=== PATIENT | male | born 1955 | race Hispanic/Latino ===

== ENCOUNTER 2019-05-20 02:11 | Emergency (ER) | payer SELFPAY ==
--- OUTSIDE RECORDS SUMMARY | 2019-05-20 02:13 | XMS REPORT ---
:1955 [facility] Address [address] [place] [address] Dr. Díaz [address] [place] [address] Care Team Providers Name Role Phone Unavailable Unavailable Unavailable Problems This patient has no known problems. Allergies, Adverse Reactions, Alerts This patient has no known allergies or adverse reactions. Medications This patient has no known medications.
--- OUTSIDE RECORDS SUMMARY | 2019-05-20 02:13 | XMS REPORT | Summary of Care ---
:1955 Author Organization [facility] - Health Address [address] [place] [address] Care Team Providers Name Role Phone René Stone [facility] Primary Care Provider [phone] Encounter Details Date Type Department Care Team Description 12/18/2018 Orders Only [facility] Doctor Unassigned, No [address] [facility] [place] [address] [address] [place] [address] Allergies No Known Allergiesdocumented as of this encounter (statuses as of 12/18/2018) Medications Medication Sig Dispensed Refills Start Date End Date Status atorvastatin 80 mg tablet Take 80 mg by 0 Active mouth at bedtime. metoprolol tartrate 100 Take 50 mg by 0 Active mg tablet mouth 2 (two) times daily. spironolactone Take 25 mg by 0 Active (ALDACTONE) 25 mg tablet mouth daily. aspirin 81 mg chewable Take 81 mg by 0 Active tablet mouth daily. clopidogrel 75 mg tablet Take 75 mg by 0 Active mouth daily. documented as of this encounter (statuses as of 12/18/2018) Active Problems Not on filedocumented as of this encounter (statuses as of 12/18/2018) Social History Tobacco Use Types Packs/Day Years Used Date Former Smoker Cigarettes Smokeless Tobacco: Former User Sex Assigned at Date Recorded Not on file Job Start Date Occupation Industry Not on file Not on file Not on file Travel History Travel Start Travel End No recent travel history available. documented as of this encounter Last Filed Vital Signs Not on filedocumented in this encounter Plan of Treatment Health Maintenance Due Date Last Done Comments HEPATITIS C (HCV) SCREEN 1955 DTaP,Tdap,and Td Vaccines (1 - 1974 Tdap) COLONOSCOPY 2005 Zoster Recombinant Vaccine 2005 (SHINGRIX) (1 of 2) LUNG CANCER SCREEN: Recommended 2010 for age 55-80 with 30 + pack year history INFLUENZA VACCINE (#1) 2018 PNEUMOCOCCAL 0-64 YEARS COMBINED Aged Out No longer eligible based on SERIES patient's age to complete this topic documented as of this encounter Procedures Procedure Name Priority Date/Time Associated Diagnosis Comments RADIOLOGY DOCUMENTATION Routine 12/18/2018 12:01 AM CDT documented in this encounter Results Not on filedocumented in this encounter
--- OUTSIDE RECORDS SUMMARY | 2019-05-20 02:14 | XMS REPORT | Summary of Care ---
:1955 Author Organization [facility] Address [address] [place] [address] Care Team Providers Name Role Phone René Hopkins [facility] Primary Care Provider [phone] Reason for Referral (Routine) Status Reason Specialty Diagnoses / Referred By Referred To Procedures Contact Contact New Request Cardiology Diagnoses Coronary artery disease involving pilot point coronary artery of pilot point heart without angina pectoris Hansen, Sendil Procedures ECHO ROUTINE W/DOPPLER COLOR Preferred Location: Kianna Chavez MD [address] [facility] [address] [place] [address] Reason for Visit Reason Comments New Patient Establish Care Medical Records Brought in by patient /Copies made (Routine) Status Reason Specialty Diagnoses / Procedures Referred By Contact Referred To Contact Closed Cardiology Diagnoses Presence of coronary angioplasty implant and graft René Hopkins Procedures CONSULT/REFERRAL CARDIOLOGY [facility] [address] [place] [address] Encounter Details Date Type Department Care Team Description 12/18/2018 Office Visit [facility] Hansen, Sendil Coronary artery disease involving pilot point coronary artery of pilot point heart without angina pectoris ( Primary Dx); Cardiology- Kianna Chavez MD Essential hypertension; [address] [place] [address] [address] Dyslipidemia; [address], [address] Non-rheumatic mitral regurgitation; [place], [place] Diastolic dysfunction [phone] Allergies No Known Allergiesdocumented as of this [...] encounter (statuses as of 12/18/2018) Active Problems No known active problemsdocumented as of this encounter (statuses as of 2018) Social History Tobacco Use Types Packs/Day Years Used Date Former Smoker Cigarettes Smokeless Tobacco: Former User Sex Assigned at Date Recorded Not on file Job Start Date Occupation Industry Not on file Not on file Not on file Travel History Travel Start Travel End No recent travel history available. documented as of this encounter Last Filed Vital Signs Vital Sign Reading Time Taken Comments Blood Pressure 138/89 12/18/2018 10:19 AM CDT Pulse 59 12/18/2018 10:19 AM CDT Temperature - - Respiratory Rate 19 12/18/2018 10:17 AM CDT Oxygen Saturation 97% 12/18/2018 10:17 AM CDT Inhaled Oxygen Concentration - - Weight 81.8 kg (180 lb 4.8 oz) 12/18/2018 10:17 AM CDT Height 177.8 cm (5' 10") 12/18/2018 10:17 AM CDT Body Mass Index 25.87 12/18/2018 10:17 AM CDT documented in this encounter Progress Notes Rikki Hansen MD - 12/18/2018 10:00 AM CDT [facility] Cardiology Consult Note Patient: Lj Escobar Date of : 1955 Date of service: 12/18/2018 Primary Care Physician: René Hopkins [facility] CHIEF COMPLAINT: Chief Complaint Patient presents with New Patient Establish Care Medical Records Brought in by patient /Copies made HISTORY OF PRESENT ILLNESS: Lj Escobar is a 63 year old male presents to the clinic to establish care for CAD. History from patient himself. Offered to use serbian translation line but he declined and was able to understand Belarusian and communicate with me. Noted to have 11.16.2018 chest pain while he was in [place], was taken to hospital, noted to have abnormal ECG, had echo and cath with RCA stent based on images reviewed today. Currently feeling much better. Active at baseline. No history of exertional chest pain or exertional shortness of breath noted. No chest pain at rest. No PND or orthopnea. No pedal edema. No exertional palpitations or palpitations at rest. No syncopal attacks. Previous Cardiac Studies: IMAGING - I personally reviewed, pertinent results as below: ECG 11.16.2018 ST elevation in inferior leads noted. Q waves in inferior leads. ST depression and T wave inversion in lateral leads PAST MEDICAL HISTORY HTN, Dyslipidemia, CAD. No significant family history and surgical history noted from cardiac stand point. SOCIAL HISTORY Social History Socioeconomic History Marital status: Spouse name: Not on file Number of children: Not on file Years of education: Not on file Highest education level: Not on file Occupational History Not on file Social Needs Financial resource strain: Not on file Food insecurity: Worry: Not on file Inability: Not on file Transportation needs: Medical: Not on file Non-medical: Not on file Tobacco Use Smoking status: Former Smoker Types: Cigarettes Smokeless tobacco: Former User Substance and Sexual Activity Alcohol use: Not on file Drug use: Not on file Sexual activity: Not on file Lifestyle Physical activity: Days per week: Not on file Minutes per session: Not on file Stress: Not on file Relationships Social connections: Talks on phone: Not on file Gets together: Not on file Attends alevism service: Not on file Active member of club or organization: Not on file Attends meetings of clubs or organizations: Not on file Relationship status: Not on file Intimate partner violence: Fear of current or ex partner: Not on file Emotionally abused: Not on file Physically abused: Not on file Forced sexual activity: Not on file Other Topics Concern Not on file Social History Narrative Not on file ALLERGIES No Known Allergies MEDICATIONS Patient's Medications START taking these medications No medications on file CONTINUE taking these medications which have NOT CHANGED ASPIRIN 81 MG CHEWABLE TABLET Take 81 mg by mouth daily. ATORVASTATIN 80 MG TABLET Take 80 mg by mouth at bedtime. CLOPIDOGREL 75 MG TABLET Take 75 mg by mouth daily. METOPROLOL TARTRATE 100 MG TABLET Take 50 mg by mouth 2 (two) times daily. SPIRONOLACTONE (ALDACTONE) 25 MG TABLET Take 25 mg by mouth daily. START taking Modified Medications as Prescribed No medications on file STOP taking these medications No medications on file REVIEW OF SYSTEMS: Comprehensive 10-system review was conducted and were negative except for what' s noted in the HPI. The following systems were reviewed: Constitutional, cardiovascular, respiratory, gastrointestinal, genitourinary, musculoskeletal, neurologic, psychiatric, endocrinological, and hematological. PHYSICAL EXAMINATION: Vitals: 12/18/18 1017 12/18/18 1019 BP: (!) 145/92 138/89 BP Location: Left arm Patient Position: Sitting BP CUFF SIZE: Adult Large Pulse: 61 59 Resp: 19 SpO2: 97% Weight: 180 lb 4.8 oz (81.8 kg) Height: 5' 10" (1.778 m) General: no apparent distress HEENT: normocephalic atraumatic Neck: supple, no lymphadenopathy, no bruits, no JVD Lungs: clear to auscultation bilaterally. No wheezes or rhonchi. No increased work of breathing. Cardio: Regular rate and rhythm, S1&S2 normal, no murmurs, rubs or gallops Abdomen: soft; non-tender; non-distended; normoactive bowel sounds. : not examined Rectal: not examined Extremities: no clubbing, cyanosis, or edema. Skin: no rashes, no visible lesions. Neuro: no gross focal deficits LABS - Reviewed pertinent labs as below: CBC BMP PT/INR No results found for: WBC No results found for: NA No results found for: PT No results found for: PLT No results found for: K No results found for: PTINR No results found for: HGB No results found for: BUN No results found for: HCT No results found for: CREAT LIPID PROFILE No results found for: GLU No results found for: CHOL TSH No results found for: LDL No results found for: TSH CARDIAC ENZYMES No results found for: HDL No results found for: CK No results found for: TRIG LFTs No results found for: CKMB No results found for: AST No results found for: TROPNI No results found for: ALT No results found for: BNP No results found for: LDL There are no current results on file for these tests and/or test for 1 year. There are no current results on file for these tests and/or test for 1 year. No results found for: LDL No results found for: NTBNP No recent labs to review. ASSESSMENT/PLAN 1. Coronary artery disease involving pilot point coronary artery of pilot point heart without angina pectorisCBC WITH DIFF LIPID PANEL (65068)(TOTAL CHOLESTEROL, TRIGLYCERIDES, HDL) N-TERMINAL PRO-BNP COMP. METABOLIC PANEL (30767) ECHO ROUTINE W/DOPPLER COLOR Preferred Location: [facility] 2. Essential hypertension 3. Dyslipidemia 4. Non-rheumatic mitral regurgitation 5. Diastolic dysfunction ECG, Echo and cath images were reviewed. CAD s/p stent 11.16.2018: ASA + Plavix. Implication for DAPT stressed. Adviced to get us the full report and stent details. HTN: Goal BP << 130/80. On Lopressor 50 BiD and Aldactone 25 mg daily Dyslipidemia: on Lipitor 80 mg daily. Moderate MR: by echo: plan to rpt echo to assess EF and MR in 3 months Will rpt ECG at next OV. Blood work CBC, CMP and lipids and NT pro BNP in 3 months. Will upload the cath images in our system. Follow up in 3 months. Recommended goal BP < 130/80 consistently, LDL << 70, HbA1c < 6.5. Recommended, explained and stressed the importance of healthy eating habits and exercises and lifestyle modifications Patient's diease process and its evaluation and treatment were discussed. We discussed each of for cardio vascular-related problems and discussed long-term goals and expectations for the each problem.I reviewed each of the cardiac medications in detail. Reviewed the medication with patient in detail recommended to continue taking the current medications without further changes other than changes mentioned above. Follow up as planned is predicated on symptoms stability and/or acceptable test results. Patient is urged to call in sooner should problems arise or if there is no improvement in cardiac symptoms. ER warning signs and symptoms explained and patient verbalized understanding. My diagnostic impression and treatment plans were discussed at length with the patient. All side effects as well as drug-drug interactions and risks discussed at length. Ample opportunity was offered and encouraged to ask questions during this visit and patient appreciated the answers given by me andverbzalised statisfcation in the answers given. We reviewed the [place] Heart [employer] recommendations for reduction of overall cardio vascular risk. The importance of monitoring the blood pressure carefully both at home on regular basis along with other physicians appointment was stressed in detail. In addition we discussed target LDL levels for optimal risk reduction. It was advised that to daily physical activity be performed with 30 minutes of sustained exercise for both cardio vascular fitness and improvement for generalized medical health and well-being. Thank you for allowing us to participate in the care of Lj Escobar. If you have any questions or concerns please feel free to call our office at . I would be happy to be of further assistance for Lj Escobar wellbeing. Dragan Hansen MD Psychiatric Tech, Division of Cardiology [facility] documented in this encounter Plan of Treatment Date Type Specialty Care Team Description 03/21/2019 Laboratory Only Creative Lead, Adc Cardio Fac 1, Adc Cardio Fac Room 04/05/2019 Office Visit Cardiology Rikki Hansen MD [address] [place] [phone] Name Type Priority Associated Diagnoses Order Schedule CBC WITH DIFF LAB Routine Coronary artery disease 1 Occurrences starting involving pilot point 12/18/2018 until coronary artery of 12/24/2019 pilot point heart without angina pectoris LIPID PANEL LAB Routine Coronary artery disease 1 Occurrences starting (63747)(TOTAL involving pilot point 12/18/2018 until CHOLESTEROL, coronary artery of 12/17/2019 TRIGLYCERIDES, HDL) pilot point heart without angina pectoris N-TERMINAL PRO-BNP LAB Routine Coronary artery disease 1 Occurrences starting involving pilot point 12/18/2018 until coronary artery of 12/18/2019 pilot point heart without angina pectoris COMP. METABOLIC PANEL LAB Routine Coronary artery disease 1 Occurrences starting (17087) involving pilot point 12/18/2018 until coronary artery of 12/19/2019 pilot point heart without angina pectoris Health Maintenance Due Date Last Done Comments [...] this topic documented as of this encounter Results Not on filedocumented in this encounter Visit Diagnoses Diagnosis Coronary artery disease involving pilot point coronary artery of pilot point heart without angina pectoris - Primary Essential hypertension Unspecified essential hypertension Dyslipidemia Other and unspecified hyperlipidemia Non-rheumatic mitral regurgitation Diastolic dysfunction Heart disease, unspecified documented in this encounter
--- OUTSIDE RECORDS SUMMARY | 2019-05-20 02:14 | XMS REPORT | Summary of Care ---
:1955 Author Organization [facility] - Health Address [address] [place] [address] Care Team Providers Name Role Phone René Stone [facility] Primary Care Provider [phone] Encounter Details Date Type Department Care Team Description 01/01/2019 Orders Only [facility] Doctor Unassigned, No 301 [facility] [address] [address] [place] [address] Allergies No Known Allergiesdocumented as of this encounter (statuses as of 01/01/2019) Medications Medication Sig Dispensed Refills Start Date [...] as of this encounter (statuses as of 01/01/2019) Active Problems No known active problemsdocumented as [...] filedocumented in this encounter Plan of Treatment Date Type Specialty Care Team Description 03/21/2019 Laboratory Only Visual Educator, Adc Cardio Fac 1, Adc Cardio Fac Room 04/05/2019 Office Visit Cardiology Rikki Hansen MD [address] [place] [phone] Health Maintenance Due Date Last Done Comments [...] Procedure Name Priority Date/Time Associated Diagnosis Comments EXTERNAL PROVIDER - ADC Routine 01/01/2019 12:01 AM CDT REFERRAL documented in this encounter Results Not on filedocumented in this encounter
--- OUTSIDE RECORDS SUMMARY | 2019-05-20 02:14 | XMS REPORT | Summary of Care ---
:[address] [facility] Address [address] [place] [address] Care Team Providers Name Role Phone René Hopkins [facility] Primary Care Provider [phone] Reason for Referral (Routine) Status Reason Specialty Diagnoses / Referred By Referred To Procedures Contact Contact New Request Cardiology Diagnoses Coronary artery disease involving [place] coronary artery of [place] heart without angina pectoris Hansen, Sendil Procedures ECHO ROUTINE W/DOPPLER COLOR Preferred Location: Kianna Chavez MD [address] [facility] [address] [place] [address] Reason for Visit Reason Comments New Patient Establish Care Medical Records Brought in by patient /Copies made (Routine) Status Reason Specialty Diagnoses / Procedures Referred By Contact Referred To Contact Closed Cardiology Diagnoses Presence of coronary angioplasty implant and graft René Hopkins Procedures CONSULT/REFERRAL CARDIOLOGY [facility] [address] [place] [address] Encounter Details Date Type Department Care Team Description 12/18/2018 Office Visit [facility] Hansen, Sendil Coronary artery disease involving [place] coronary artery of [place] heart without angina pectoris ( Primary Dx); Cardiology- Kianna Chavez MD Essential hypertension; [address] [place] [address] [address] Dyslipidemia; [address], [address] Non-rheumatic mitral regurgitation; [place], [place] Diastolic dysfunction [phone] Allergies No [...] Hansen MD - 12/18/2018 10:00 AM CDT [facility] Cardiology Consult Note Patient: Lj Escobar Date of : 1955 Date of service: 12/18/2018 Primary Care Physician: René Hopkins [facility] CHIEF COMPLAINT: Chief Complaint Patient presents with New Patient Establish Care Medical Records Brought in by patient /Copies made HISTORY OF PRESENT ILLNESS: Lj Escobar is a 63 year old male presents to the clinic to establish care for CAD. History from patient himself. Offered to use hungarian translation line but he declined and was able to understand Arabic and communicate with me. Noted to have [...] file Gets together: Not on file Attends druze service: Not on file Active member of [...] review. ASSESSMENT/PLAN 1. Coronary artery disease involving [place] coronary artery of [place] heart without angina pectorisCBC WITH DIFF LIPID PANEL (47321)(TOTAL CHOLESTEROL, TRIGLYCERIDES, HDL) N-TERMINAL PRO-BNP COMP. METABOLIC PANEL (55478) ECHO ROUTINE W/DOPPLER COLOR Pref[facility] Location: [facility] 2. Essential hypertension 3. Dyslipidemia 4. Non-rheumatic [...] in the answers given. We reviewed the [place] [employer] recommendations for reduction of overall [...] for Lj Escobar wellbeing. Dragan Hansen MD Manager Of Housekeeping, Division of Cardiology [facility] documented in this encounter Plan of Treatment Date Type Specialty Care Team Description 03/21/2019 Laboratory Only Health Care Consultant, Adc Cardio Fac 1, Adc Cardio Fac Room 04/05/2019 Office Visit Cardiology Rikki Hansen MD [address] [place] [phone] Name Type Priority Associated Diagnoses Order Schedule CBC WITH DIFF LAB Routine Coronary artery disease 1 Occurrences starting involving cocopah 12/18/2018 until coronary artery of 12/24/2019 [place] heart without angina pectoris LIPID PANEL LAB Routine Coronary artery disease 1 Occurrences starting (22757)(TOTAL involving cocopah 12/18/2018 until CHOLESTEROL, coronary artery of 12/17/2019 TRIGLYCERIDES, HDL) [place] heart without angina pectoris N-TERMINAL PRO-BNP LAB Routine Coronary artery disease 1 Occurrences starting involving [place] 12/18/2018 until coronary artery of 12/18/2019 [place] heart without angina pectoris COMP. METABOLIC PANEL LAB Routine Coronary artery disease 1 Occurrences starting (63611) involving [place]op[place] 12/18/2018 until coronary artery of 12/19/2019 [place] heart without angina pectoris Health Maintenance Due [...] Visit Diagnoses Diagnosis Coronary artery disease involving [place] coronary artery of [place] heart without angina pectoris - Primary Essential hypertension Unspecified essential hypertension Dyslipidemia Other and unspecified hyperlipidemia Non-rheumatic mitral regurgitation Diastolic dysfunction Heart disease, unspecified documented in this encounter
[2019-05-20 02:48] LABS: Absolute Lymphocytes (CBC) 2.6 K/uL (0.7-4.9); Hematocrit 43.8 % (39.6-49.0); MPV 7.3 fL (7.6-11.3); Protime INR 1.15; RBC Red Blood Cell Count 4.69 M/uL (4.33-5.43)
[2019-05-20] MEDS ORDERED: ONDANSETRON 4 MG/2 ML VIAL ONE (02:54)
[2019-05-20 03:05] LABS: ALT/SGPT 70 U/L (12-78); AST/SGOT 41 U/L (15-37); Alkaline Phosphatase 87 U/L (45-117); BUN Blood Urea Nitrogen 16 mg/dL (7-18); Bicarbonate 25 mmol/L (21-32); Bilirubin Direct 0.2 mg/dL (0-0.2); Bilirubin Total 0.5 mg/dL (0.2-1.0); Glucose Level 134 mg/dL (74-106); Magnesium 1.9 mg/dL (1.8-2.4); NT PRO-BNP 217 pg/mL (<125); Potassium 4.2 mmol/L (3.5-5.1); Sodium Level 139 mmol/L (136-145); Troponin (Emerg Dept Use Only) < 0.02 ng/mL (0.0-0.045)
--- NOTE | 2019-05-20 05:50 | EDPHYS ---
Physician Documentation [facility] Name: Lj Escobar Age: 64 yrs Sex: Male : 1955 Arrival Date: 05/20/2019 Time: 02:16 Bed 20 Private MD: ED Physician Juarez Alicia HPI: 05/20 02:51 This 64 yrs old Male presents to ER via Ambulatory with complaints of Chest pkl Pain, Vomiting, Chills. 02:52 The patient or guardian reports chest pain that is located primarily in the substernal pkl area. Onset: just prior to arrival, 4 hour(s) ago. The pain does not radiate. Associated signs and symptoms: Pertinent positives: nausea. The chest pain is described as a pressure. The patient has experienced a previous episode, approximately 3 months ago, Had stent placement in [place]. Historical: - Allergies: 03:00 No Known Allergies; fu - Home Meds: 03:03 metoprolol tartrate 50 mg Oral tab 2 times per day [Active]; Plavix 75 mg Oral tab 1 fu tab once daily [Active]; Lipitor 80 mg Oral tab 1 tab once daily [Active]; Aldactone 25 mg Oral tab 1 tab once daily [Active]; - PMHx: 03:04 Hypertension; fu - PSHx: 03:06 cardiac cath; fu - Immunization history:: Adult Immunizations not up to date. - Coronavirus screen:: The patient has NOT traveled to [place], [place], or [place] in the past 14 days. Proceed with normal triage process as indicated. - Social history:: Smoking status: Patient denies any tobacco usage or history of. - Ebola Screening: : Patient denies travel to an Ebola-affected area in the 21 days before illness onset. ROS: 02:52 Eyes: Negative for injury, pain, redness, and discharge, ENT: Negative for injury, pkl pain, and discharge, Neck: Negative for injury, pain, and swelling. 02:52 Cardiovascular: Positive for chest pain. 02:52 Respiratory: Negative for cough, shortness of breath. 02:52 Abdomen/GI: Positive for nausea. 02:52 Back: Negative for acute changes. 02:52 : Negative for urinary symptoms. 02:52 MS/extremity: Negative for acute changes. 02:52 Skin: Negative for rash. 02:52 Neuro: Negative for altered mental status. Exam: 02:52 Head/Face: Normocephalic, atraumatic. Eyes: Pupils equal round and reactive to light, pkl extra-ocular motions intact. Lids and lashes normal. Conjunctiva and sclera are non-icteric and not injected. Cornea within normal limits. Periorbital areas with no swelling, redness, or edema. ENT: Nares patent. No nasal discharge, no septal abnormalities noted. Tympanic membranes are normal and external auditory canals are clear. Oropharynx with no redness, swelling, or masses, exudates, or evidence of obstruction, uvula midline. Mucous membranes moist. Neck: Trachea midline, no thyromegaly or masses palpated, and no cervical lymphadenopathy. Supple, full range of motion without nuchal rigidity, or vertebral point tenderness. No Meningismus. Chest/axilla: Normal chest wall appearance and motion. Nontender with no deformity. No lesions are appreciated. Cardiovascular: Regular rate and rhythm with a normal S1 and S2. No gallops, murmurs, or rubs. Normal PMI, no JVD. No pulse deficits. Respiratory: Lungs have equal breath sounds bilaterally, clear to auscultation and percussion. No rales, rhonchi or wheezes noted. No increased work of breathing, no retractions or nasal flaring. Abdomen/GI: Soft, non-tender, with normal bowel sounds. No distension or tympany. No guarding or rebound. No evidence of tenderness throughout. Back: No spinal tenderness. No costovertebral tenderness. Full range of motion. Skin: Warm, dry with normal turgor. Normal color with no rashes, no lesions, and no evidence of cellulitis. MS/ Extremity: Pulses equal, no cyanosis. Neurovascular intact. Full, normal range of motion. Neuro: Awake and alert, GCS 15, oriented to person, place, time, and situation. Cranial nerves II-XII grossly intact. Motor strength 5/5 in all extremities. Sensory grossly intact. Cerebellar exam normal. Normal gait. Vital Signs: 02:48 BP 145 / 91; Pulse 68; Resp 18; Temp 98.1(O); Pulse Ox 100% ; Weight 81.65 kg; Height 5 fu ft. 10 in. (177.80 cm); Pain 410; 03:30 BP 128 / 81; Pulse 67; Resp 13; Pulse Ox 98% on R/A; fu 04:30 BP 139 / 86; Pulse 62; Resp 17; Pulse Ox 96% ; Pain 0/10; fu 05:45 BP 135 / 91; Pulse 63; Resp 17; Pulse Ox 99% ; Pain 0/10; fu 02:48 Body Mass Index 25.83 (81.65 kg, 177.80 cm) fu MDM: 02:19 Patient medically screened. pkl 05:44 Data reviewed: vital signs, nurses notes, lab test result(s), EKG, radiologic studies, pkl plain films. ED course: Patient said he is feeling better. Chest pain has resolved. Advised to follow up with his Shuttle Final Inspector ( Dr. Hansen ) in 1 to 2 days for further evaluations. Patient understood instructions.. 05/20 02:30 Order name: Basic Metabolic Panel; Complete Time: 03:04 fu 05/20 02:30 Order name: CBC with Diff; Complete Time: 02:54 fu 05/20 02:30 Order name: LFT's; Complete Time: 03:04 fu 05/20 02:30 Order name: Magnesium; Complete Time: 03:04 fu 05/20 02:30 Order name: NT PRO-BNP; Complete Time: 03:04 fu 05/20 02:30 Order name: PT-INR; Complete Time: 02:54 fu 05/20 02:30 Order name: Troponin (emerg Dept Use Only); Complete Time: 03:04 fu 05/20 02:30 Order name: XRAY Chest (1 view) fu 05/20 02:30 Order name: EKG; Complete Time: 02:31 fu 05/20 02:49 Order name: D-Dimer; Complete Time: 03:11 pkl 05/20 02:52 Order name: Flu; Complete Time: 03:33 pkl 05/20 04:33 Order name: Troponin (emerg Dept Use Only) pkl 05/20 05:35 Order name: Troponin (Emerg Dept Use Only); Complete Time: 05:44 EDMS 05/20 02:30 Order name: Cardiac monitoring; Complete Time: 02:31 fu 05/20 02:30 Order name: EKG - Nurse/Tech; Complete Time: 02:31 fu 05/20 02:30 Order name: IV Saline Lock; Complete Time: 02:31 fu 05/20 02:30 Order name: Labs collected and sent; Complete Time: 02: fu 05/20 02:30 Order name: O2 Per Protocol; Complete Time: : fu 05/20 02:30 Order name: O2 Sat Monitoring; Complete Time: : fu 05/20 04:33 Order name: EKG; Complete Time: 04:48 pkl Administered Medications: 03:00 Drug: Zofran 4 mg Route: IVP; Site: right antecubital; fu 04:00 Follow up: Response: Nausea is decreased fu Disposition: 05/20/19 05:49 Discharged to Home. Impression: Chest pain. - Condition is Stable. - Medication Reconciliation Form, Thank You Letter, Antibiotic Education, Prescription Opioid Use form. - Follow up: Private Physician; When: 1 - 2 days; Reason: Re-evaluation by your physician. - Problem is new. - Symptoms are resolved. Signatures: Dispatcher [employer] EDJuarez Reid MD MD pkl Fco Willis RN RN fu Corrections: (The following items were deleted from the chart) 06:05 05:49 05/20/2019 05:49 Discharged to Home. Impression: Chest pain. Condition is Stable. fu Forms are Medication Reconciliation Form, Thank You Letter, Antibiotic Education, Prescription Opioid Use. Follow up: Private Physician; When: 1 - 2 days; Reason: Re-evaluation by your physician. Problem is new. Symptoms are resolved. pkl
--- NOTE | 2019-05-20 05:50 | ER ---
Nurse's Notes [facility] Name: Lj Escobar Age: 64 yrs Sex: Male : 1955 Arrival Date: 05/20/2019 Time: 02:16 Bed 20 Private MD: Diagnosis: Chest pain Presentation: 05/20 02:39 Presenting complaint: Patient states: "chest pain, feels sweating and nauseated since fu 10pm". Transition of care: patient was not received from another setting of care. Onset of symptoms was May 19, 2019 at 22:00. Risk Assessment: Do you want to hurt yourself or someone else? Patient reports no desire to harm self or others. Initial Sepsis Screen: Does the patient meet any 2 criteria? No. Patient's initial sepsis screen is negative. Does the patient have a suspected source of infection? No. Patient's initial sepsis screen is negative. Care prior to arrival: None. 02:39 Method Of Arrival: Ambulatory fu 02:39 Acuity: BEATRIZ 3 fu Historical: - Allergies: 03:00 No Known Allergies; fu - Home Meds: 03:03 metoprolol tartrate 50 mg Oral tab 2 times per day [Active]; Plavix 75 mg Oral tab 1 fu tab once daily [Active]; Lipitor 80 mg Oral tab 1 tab once daily [Active]; Aldactone 25 mg Oral tab 1 tab once daily [Active]; - PMHx: 03:04 Hypertension; fu - PSHx: 03:06 cardiac cath; fu - Immunization history:: Adult Immunizations not up to date. - Coronavirus screen:: The patient has NOT traveled to [place], [place], or [place] in the past 14 days. Proceed with normal triage process as indicated. - Social history:: Smoking status: Patient denies any tobacco usage or history of. - Ebola Screening: : Patient denies travel to an Ebola-affected area in the 21 days before illness onset. Screenin:11 Abuse screen: Denies threats or abuse. Nutritional screening: No deficits noted. fu Tuberculosis screening: No symptoms or risk factors identified. Fall Risk None identified. Assessment: 03:07 General: Appears in no apparent distress. Behavior is calm, cooperative, appropriate fu for age, Denies fever, feeling ill, fatigue, chills. Pain: Complains of pain in mid-sternal area Pain does not radiate. Pain currently is 4 out of 10 on a pain scale. Quality of pain is described as pressure, Pain began 0 last night Also complains of feels sweating. Neuro: Level of Consciousness is awake, alert, obeys commands, Oriented to person, place, time, situation, Surveyor are equal bilaterally Moves all extremities. Cardiovascular: Reports chest pain, nausea, Denies shortness of breath, syncope, Heart tones S1 S2 Capillary refill < 3 seconds Pulses are all present. Rhythm is regular Chest pain began 2199 last night. Respiratory: Airway is patent Breath sounds are clear bilaterally. Denies shortness of breath pain with respiration, pain with cough, pain with movement. 03:49 Reassessment: Patient and/or family updated on plan of care and expected duration. Pain fu level reassessed. Patient is alert, oriented x 3, equal unlabored respirations, skin warm/dry/pink. Patient denies pain at this time. Patient states feeling better. Patient states symptoms have improved. 05:13 Reassessment: Patient and/or family updated on plan of care and expected duration. Pain fu level reassessed. Patient is alert, oriented x 3, equal unlabored respirations, skin warm/dry/pink. Blood drawn for Troponin, Repeat EKG done Patient denies pain at this time. Patient states feeling better. 05:49 Reassessment: Patient and/or family updated on plan of care and expected duration. Pain fu level reassessed. Patient is alert, oriented x 3, equal unlabored respirations, skin warm/dry/pink. Patient states feeling better. Patient states symptoms have improved. Dr. Alicia in patient's room talking with patient. Vital Signs: 02:48 BP 145 / 91; Pulse 68; Resp 18; Temp 98.1(O); Pulse Ox 100% ; Weight 81.65 kg; Height 5 fu ft. 10 in. (177.80 cm); Pain 4/10; 03:30 BP 128 / 81; Pulse 67; Resp 13; Pulse Ox 98% on R/A; fu 04:30 BP 139 / 86; Pulse 62; Resp 17; Pulse Ox 96% ; Pain 0/10; fu 05:45 BP 135 / 91; Pulse 63; Resp 17; Pulse Ox 99% ; Pain 0/10; fu 02:48 Body Mass Index 25.83 (81.65 kg, 177.80 cm) fu ED Course: 02:16 Patient arrived in ED. es 02:19 Juarez Alicia MD is Attending Physician. pklisa 02:26 Fco Willis, RN is Primary Nurse. fu 02:31 Inserted saline lock: 20 gauge in right antecubital area, using aseptic technique. pa Blood collected. 02:46 Triage completed. fu 02:48 XRAY Chest (1 view) In Process Unspecified. EDMS 03:11 Patient has correct armband on for positive identification. Placed in gown. Bed in low fu position. Side rails up X 1. stamp classifier on. Pulse ox on. NIBP on. 05:00 Arm band placed on. fu 05:09 Troponin (emerg Dept Use Only) Sent. fu 06:03 No provider procedures requiring assistance completed. IV discontinued, bleeding fu controlled, Pressure dressing applied. Patient maintains SpO2 saturation greater than 95% on room air. Administered Medications: 03:00 Drug: Zofran 4 mg Route: IVP; Site: right antecubital; fu 04:00 Follow up: Response: Nausea is decreased fu Outcome: 05:49 Discharge ordered by . pklisa 06:04 Discharged to home ambulatory. fu 06:04 Condition: stable 06:04 Discharge instructions given to patient, family, Instructed on discharge instructions, Demonstrated understanding of instructions. 06:05 Patient left the ED. fu Signatures: Dispatcher [employer] EDJuarez Reid MD MD pkl Salyer, Maura Olson, [facility] Fco Willis RN RN fu Corrections: (The following items were deleted from the chart) 02:59 02:39 Presenting complaint: Patient states: "chest pain, feels sweating and threw up fu since 10pm". fu 03:12 02:39 Fco Willis, GADIEL is Primary Nurse. fu fu 03:34 02:39 Presenting complaint: Patient states: "chest pain, feels sweating and nauseated fu since 10pm". fu
[2019-05-20 06:12] VITALS: TEMP 98.1
[2019-05-20 06:16] VITALS: BP 135/91; O2SAT 99
--- NOTE | 2019-05-20 08:11 | RAD REPORT ---
EXAM DESCRIPTION: RAD - Chest Single View - 05/20/2019 2:48 am CLINICAL HISTORY: CHEST PAIN COMPARISON: No comparisons TECHNIQUE: AP portable chest image was obtained 05/20/2019 2:48 am . FINDINGS: Lungs are clear. Heart and vasculature are normal. No measurable pleural effusion and no p neumothorax. No acute bony abnormality seen. No acute aortic findings suspected. IMPRESSION: No acute cardiopulmonary process.
--- NOTE | 2019-05-20 08:23 | EKG ---
Test Date: 2019-05-20 Test Time: 05:02:16 Lift Builder Whole: ONESIMO MEASUREMENT RESULTS: Intervals: Rate: 59 MS: 176 QRSD: 102 QT: 410 QTc: 405 Lutts: P: 38 MS: 176 QRS: -47 T: 98 INTERPRETIVE STATEMENTS: Sinus bradycardia Left anterior fascicular block Left ventricular hypertrophy with repolarization abnormality Possible Inferior infarct, age undetermined Abnormal ECG Compared to ECG 05/20/2019 02:24:22 Left anterior fascicular block now present Early repolarization now present Left-axis deviation no longer present Myocardial infarct finding still present Electronically Signed On 05-20-19 08:23:38 BUY BOAT OPERATOR by Kamaljit Noble
--- NOTE | 2019-05-20 08:24 | EKG ---
Test Date: 2019-05-20 Test Time: 02:24:22 Flame Hardening Machine Setter: ROBY MEASUREMENT RESULTS: Intervals: Rate: 59 MD: 176 QRSD: 100 QT: 418 QTc: 413 [place]: P: 59 MD: 176 QRS: -52 T: 70 INTERPRETIVE STATEMENTS: Sinus bradycardia Left axis deviation Minimal voltage criteria for LVH, may be normal variant Inferior infarct, age undetermined Abnormal ECG No previous ECG available for comparison Electronically Signed On 05-20-19 08:23:53 PATIENT CARE ASSOCIATE by Kamaljit Noble
== END 2019-05-20 06:05 | disposition home or self-care (01) ==
LOC: ER 02:11
DX: R07.9 Chest pain, unspecified (principal); I10 Essential (primary) hypertension
CPT/HCPCS: 36415; 71045; 80048; 80076; 83735; 83880; 84484; 85025; 85379; 85610; 87804; 93005; 96374; 99285; J2405